=== PATIENT | male | born 1955 | race Caucasian/White ===

== ENCOUNTER 2021-05-23 19:23 | Emergency (ER) | payer OTHER ==
[2021-05-23 19:28] VITALS: TEMP 98; BMI 28.8
[2021-05-23 23:11] VITALS: BP 182/90; PULSE 89
== END 2021-05-23 23:13 | disposition home or self-care (01) ==
LOC: JER 19:23
DX: S00.12XA Contusion of left eyelid and periocular area, initial encounter (principal); W19.XXXA Unspecified fall, initial encounter
CPT/HCPCS: 70450-TC; 70486-TC; 99284-25

== ENCOUNTER 2023-01-25 04:00 | Day surgery (SDC) | payer OTHER ==
[2023-01-18 11:38] VITALS: BMI 28.8
[2023-01-25] MEDS ORDERED: FENTANYL CITRATE/PF 50 MCG/ML VIAL ONE ×2 (09:40→09:54)
[2023-01-25] MEDS ORDERED: MIDAZOLAM HCL 2 MG/2 ML SINGLE DOSE VIAL ONE (09:40)
[2023-01-25 11:38] VITALS: BP 167/88; PULSE 66; RESP 20
[2023-01-25 11:43] VITALS: TEMP 97.6
== END 2023-01-25 11:37 | disposition home or self-care (01) ==
LOC: JASU-SURG 04:00
PROVIDERS: ATTEND Urology
PROC: 0TF3XZZ Fragmentation in Right Kidney Pelvis, External Approach (ICD-10-PCS; principal; 2023-01-25 09:30)
DX: N20.0 Calculus of kidney (principal)
CPT/HCPCS: 82962